=== PATIENT | female | born 1975 | race African-American/Black ===

== ENCOUNTER 2022-01-14 12:58 | Emergency (ER) | payer BC, OTHER ==
[~2022-01-14] VITALS: Ht 149.9 cm; Wt 108.9 kg
[~2022-01-14 12:58] MED LIST: ADDERALL XR 3030 MG PO; XANAX0.25 MG PO; [UNRECOGNIZED DRUG - OTHER] PO
[2022-01-14] MEDS ORDERED: CYCLOBENZAPRINE HCL 10 MG TAB PO ONE (13:30)
[2022-01-14] MEDS ORDERED: HYDROCODONE/APAP 7.5MG-325MG 1 EA TAB PO ONE (13:30)
[2022-01-14] MEDS ORDERED: METHOCARBAMOL750 MG PO (13:33)
[2022-01-14] MEDS ORDERED: MOTRIN800 MG PEG (13:33)
[2022-01-14] MEDS ORDERED: PREDNISONE50 MG PO (13:33)
== END 2022-01-14 14:04 | disposition home or self-care (01) ==
LOC: ER 13:00
DX: S39.012A Strain of muscle, fascia and tendon of lower back, initial encounter (principal); I10 Essential (primary) hypertension; F41.9 Anxiety disorder, unspecified; X58.XXXA Exposure to other specified factors, initial encounter; Z88.6 Allergy status to analgesic agent; Z79.899 Other long term (current) drug therapy
CPT/HCPCS: 99283